=== PATIENT | male | born 1965 | race Hispanic/Latino ===

== ENCOUNTER 2023-01-30 15:38 | Emergency (ER) | payer MEDICARE, OTHER ==
[~2023-01-30] VITALS: Ht 165.1 cm; Wt 70.8 kg
[2023-01-30 16:25] VITALS: O2SAT 96
[2023-01-30] MEDS ORDERED: MUPIROCIN22 GM TOP (17:14)
[2023-01-30] MEDS ORDERED: CEPHALEXIN500 MG PO (17:16)
== END 2023-01-30 17:30 | disposition home or self-care (01) ==
LOC: FSED 16:01
DX: L03.115 Cellulitis of right lower limb (principal); Y93.E1 Activity, personal bathing and showering; E11.9 Type 2 diabetes mellitus without complications; I10 Essential (primary) hypertension
CPT/HCPCS: 99282